=== PATIENT | female | born 1965 | race American Indian/Alaskan Native ===

== ENCOUNTER 2017-03-15 15:36 | Emergency (ER) | payer BC ==
[2017-03-15 15:43] VITALS: BMI 30.4
[2017-03-15] MEDS ORDERED: Sodium Chloride 0.9% 1,000 ML IV STA (16:01)
[2017-03-15 16:23] LABS: BASO # 0.01 K/mm3 (0.0-2.0); BASO % 0.2 % (0.0-3.0); EOS # 0.2 (0.0-0.7); EOS % 3.1 % (1.5-5.0); GRAN # 2.93 (1.4-6.5); GRAN % 56.7 % (50.0-68.0); HEMATOCRIT 39.9 % (36.0-48.0); LYMPH # 1.8 (1.2-3.4); LYMPH % 34.8 % (22.0-35.0); MEAN CELL VOLUME 86.2 fl (80.0-105.0); MEAN CORPUSCULAR HGB CONC 34.8 g/dl (31.0-37.0); MEAN PLATELET VOLUME 8.5 fl (7.0-11.0); MONO # 0.3 (0.1-0.6); MONO % 5.2 % (1.0-6.0); RED CELL DISTRIBUTION WIDTH 12.7 % (11.5-14.5); WHITE BLOOD COUNT 5.2 10^3/ul (4.5-11.0)
[2017-03-15 16:36] LABS: ALB/GLOB RATIO 1.4 (1.1-1.8); ALKALINE PHOSPHATASE 93 U/L (38-126); ALT/SGPT 88 U/L (7-56); AST/SGOT 79 U/L (14-36); BILIRUBIN,TOTAL 0.7 mg/dL (0.2-1.3); BLOOD UREA NITROGEN 12 mg/dL (7-21); CALCIUM 9.2 mg/dL (8.4-10.5); CARBON DIOXIDE 32 mmol/L (21-33); CHLORIDE 106 mmol/L (98-107); GFR AFRICAN-AMERICAN > 60; GLUCOSE,RANDOM 98 mg/dL (70-110); LIPASE 69 U/L (23-300); SODIUM 147 mmol/L (132-148); TOTAL PROTEIN 6.8 g/dL (5.8-8.3)
[2017-03-15 16:37] LABS: URINE BILIRUBIN NEGATIVE (NEGATIVE); URINE BLOOD SMALL (NEGATIVE); URINE GLUCOSE (UA) NEGATIVE (NEGATIVE); URINE KETONE NEGATIVE (NEGATIVE); URINE LEUKOCYTE ESTERASE NEGATIVE Leu/uL (NEGATIVE); URINE PROTEIN TRACE mg/dL (<30 mg/dL)
[2017-03-15 16:38] LABS: PARTIAL THROMBOPLASTIN TIME 29.6 Seconds (25.1-36.5)
[2017-03-15 16:44] LABS: URINE APPEARANCE CLEAR (CLEAR); URINE COLOR YELLOW (YELLOW)
[2017-03-15 16:46] LABS: URINE BACTERIA FEW (NEG)
--- NOTE | 2017-03-15 18:27 | US ---
HISTORY: abdominal pain COMPARISON: None available. TECHNIQUE: Sonographic evaluation of the abdomen. FINDINGS: LIVER: Measures 16.0 cm in sagittal dimension. Echogenic liver may be seen in setting of hepatic parenchymal disease or fatty infiltration. No focal hepatic mass identified. The main portal vein appears patent with normal directional flow. No intrahepatic bile duct dilatation. GALLBLADDER: No gallstones. No gallbladder wall thickening. Negative sonographic Dey's sign as assessed by the radiation oncology nurse. COMMON BILE DUCT: Measures 5 mm. PANCREAS: Not well visualized. RIGHT KIDNEY: Measures 10.4 x 4.1 x 5.9cm. No obstructing calculus or hydronephrosis identified. LEFT KIDNEY: Measures 9.9 x 7.0 x 6.2cm. No obstructing calculus or hydronephrosis identified. SPLEEN: Measures approximately 9.8 cm. Cm No focal splenic mass or calcification evident. AORTA: Limited views appear unremarkable. IVC: Limited views appear unremarkable. OTHER FINDINGS: None. IMPRESSION: Echogenic liver may be seen in setting of hepatic parenchymal disease or fatty infiltration.
--- NOTE | 2017-03-15 18:30 | US ---
HISTORY: suprapubic pain COMPARISON: None available. TECHNIQUE: Real-time transabdominal pelvic ultrasound was performed. In addition a transvaginal pelvic ultrasound was necessary to better depict pelvic anatomy. FINDINGS: Examination limited by bowel gas. UTERUS: Measures 5.7 x 2.5 x 3.0 cm. Anteverted. ENDOMETRIUM: Measures 1 mm in diameter. CERVIX: No cervical abnormality identified. RIGHT OVARY: Not visualized. LEFT OVARY: Not visualized. FREE FLUID: No significant free fluid noted. OTHER FINDINGS: None. IMPRESSION: Examination limited by bowel gas. Bilateral ovaries were not visualized.
--- NOTE | 2017-03-15 18:32 | ED PDOC ---
Arrival/HPI - General Chief Complaint: Abdominal Pain Time Seen by Provider: 03/15/17 15:51 Historian: Patient - History of Present Illness Narrative History of Present Illness (Text): 03/15/17 18:27 51yo female with history of hypertension who present with suprapubic abdominal pain that radiates to her right pelvic x 2weeks. Notes that [place] [facility] [place] and DC home with Percocet after negative work up. States abdominal CT was done and it was negative. Reports taking the Percocet without relieve. She denies nausea, vomiting, diarrhea, constipation, urinary symptoms, hematemesis, hematochezia, fever, chills, back pain, any other complaint. She notes that she was treated for UTI 2weeks ago. Past Medical History - Provider Review Nursing Documentation Reviewed: Yes - Infectious Disease Hx of Infectious Diseases: None - Reproductive Menopause: Yes - Cardiac Hx Cardiac Disorders: Yes Hx Hypertension: Yes - Pulmonary Hx Respiratory Disorders: No - Neurological Hx Neurological Disorder: No - HEENT Hx HEENT Disorder: No - Renal Hx Renal Disorder: No - Endocrine/Metabolic Hx Endocrine Disorders: No - Hematological/Oncological Hx Blood Disorders: No - Integumentary Hx Dermatological Disorder: No - Musculoskeletal/Rheumatological Hx Musculoskeletal Disorders: No - Gastrointestinal Hx Gastrointestinal Disorders: No - Genitourinary/Gynecological Hx Genitourinary Disorders: No - Psychiatric Hx Post Traumatic Stress Disorder: No Hx Substance Use: No - Surgical History Hx Appendectomy: Yes Hx Dilation and Curettage: Yes (2 abortions) Hx Tonsillectomy: Yes Other/Comment: ectopic pregnancies - Anesthesia Hx Anesthesia: Yes Hx Anesthesia Reactions: No Hx Malignant Hyperthermia: No - Suicidal Assessment Feels Threatened In Home Enviroment: No Family/Social History - Physician Review Nursing Documentation Reviewed: Yes Family/Social History: Unknown Family HX Smoking Status: Former Smoker Hx Alcohol Use: No Hx Substance Use: No Allergies/Home Meds Allergies/Adverse Reactions: Allergies sulfamethoxazole [From Bactrim] Allergy (Verified 03/15/17 15:42) URTICARIA trimethoprim [From Bactrim] Allergy (Verified 03/15/17 15:42) URTICARIA Home Medications: Home Meds Medication Instructions Recorded Confirmed Cholecalciferol [Vitamin D 1000 IU] 50,000 iu PO QWK 03/15/17 03/15/17 oxyCODONE/Acetaminophen [Percocet 1 tab PO PRN PRN 03/15/17 03/15/17 5/325 mg Tab] valACYclovir [Valtrex] 500 mg PO DAILY 03/15/17 03/15/17 Review of Systems - Physician Review All systems were reviewed & negative as marked: Yes - Review of Systems Constitutional: Normal Eyes: Normal ENT: Normal Respiratory: Normal Cardiovascular: Normal Gastrointestinal: Abdominal Pain. absent: Constipation, Diarrhea, Nausea, Vomiting, Hematochezia, Hematemesis Genitourinary Female: Normal Musculoskeletal: Normal Skin: Normal Neurological: Normal Endocrine: Normal Hemo/Lymphatic: Normal Psychiatric: Normal Physical Exam Vital Signs Reviewed: Yes Vital Signs Temp Pulse Resp BP Pulse Ox 03/15/17 19:25 98.8 F 88 18 136/84 99 03/15/17 18:48 98.2 F 72 17 145/82 98 03/15/17 15:46 98.5 F 75 19 159/89 H 99 Temperature: Afebrile Blood Pressure: Normal Pulse: Regular Respiratory Rate: Normal Appearance: Positive for: Well-Appearing, Non-Toxic, Comfortable Pain Distress: None Mental Status: Positive for: Alert and Oriented X 3 - Systems Exam Head: Present: Atraumatic, Normocephalic Pupils: Present: PERRL Extroacular Muscles: Present: EOMI Conjunctiva: Present: Normal Mouth: Present: Moist Mucous Membranes Neck: Present: Normal Range of Motion Respiratory/Chest: Present: Clear to Auscultation, Good Air Exchange. No: Respiratory Distress, Accessory Muscle Use Cardiovascular: Present: Regular Rate and Rhythm, Normal S1, S2. No: Murmurs Abdomen: Present: Tenderness (Suprapubic tenderness), Normal Bowel Sounds, Other (soft). No: Distention, Peritoneal Signs, Rebound, Guarding, McBurney's Point Tender, Rovsing's Sign Present Back: Present: Normal Inspection Upper Extremity: Present: Normal Inspection. No: Cyanosis, Edema Lower Extremity: Present: Normal Inspection. No: Edema Neurological: Present: GCS=15, CN II-XII Intact, Speech Normal Skin: Present: Warm, Dry, Normal Color. No: Rashes Psychiatric: Present: Alert, Oriented x 3, Normal Insight, Normal Concentration Medical Decision Making ED Course and Treatment: 03/16/17 02:01 PT was comfortable in emergency departm She had abdominal CT on monday, so abdominal/pelvis US was done in emergency department. Result was DW the pt hematuria was noted in her Urinalysis and she was started on cipro. She was referred to [facility]/Urologist. TRt emergency departmfor any new or worsening symptoms. - Lab Interpretations Lab Results: 03/15/17 16:10 03/15/17 16:10 Lab Results 03/15/17 16:10: Sodium 147, Potassium 4.0, Chloride 106, Carbon Dioxide 32, Anion Gap 13, BUN 12, Creatinine 0.9, Est GFR ( Amer) > 60, Est GFR (Non- Af Amer) > 60, Random Glucose 98, Calcium 9.2, Total Bilirubin 0.7, AST 79 H D, ALT 88 H, Alkaline Phosphatase 93, Total Protein 6.8, Albumin 4.0, Globulin 2.8 , Albumin/Globulin Ratio 1.4, Lipase 69 03/15/17 16:10: PT 10.9, INR 1.00, APTT 29.6 03/15/17 16:10: WBC 5.2, RBC 4.63, Hgb 13.9, Hct 39.9, MCV 86.2, MCH 30.0, MCHC 34.8, RDW 12.7, Plt Count 223, MPV 8.5, Gran % 56.7, Lymph % (Auto) 34.8, [place] % (Auto) 5.2, Eos % (Auto) 3.1, Baso % (Auto) 0.2, Gran # 2.93, Lymph # 1.8, [place] # 0.3, Eos # 0.2, Baso # 0.01 03/15/17 16:00: Urine Color Yellow, Urine Appearance Clear, Urine pH 7.0, Ur Specific [place] 1.020, Urine Protein Trace H, Urine Glucose (UA) Negative, Urine Ketones Negative, Urine Blood Small H, Urine Nitrate Negative, Urine Bilirubin Negative, Urine Urobilinogen 1.0 H, Ur Leukocyte Esterase Negative, Urine RBC 5 - 10, Urine WBC 2 - 5, Urine Bacteria Few - RAD Interpretation Radiology Orders: 03/15/17 16:02 TRANSVAGINAL [US] Stat 03/15/17 16:53 ABDOMEN COMPLETE [US] Stat - Medication Orders Current Medication Orders: Discontinued Medications Famotidine (Pepcid) 20 mg IVP STAT STA Stop: 03/15/17 16:02 Last Admin: 03/15/17 16:20 Dose: 20 mg IVP Administration Document 03/15/17 16:20 IT (Rec: 03/15/17 16:20 IT [id number]) Charges for Administration # of IVP Administrations 1 Sodium Chloride (Sodium Chloride 0.9%) 1,000 mls @ 1,000 mls/hr IV .Q1H STA Stop: 03/15/17 17:00 Last Admin: 03/15/17 16:20 Dose: 1,000 mls/hr eMAR Start Stop Document 03/15/17 16:20 IT (Rec: 03/15/17 16:20 IT [id number]) Intravenous Solution Start Date 03/15/17 Start Time 16:20 End Date 03/15/17 End time 17:20 Total Infusion Time 60 Ketorolac Tromethamine (Toradol) 30 mg IVP STAT STA Stop: 03/15/17 16:02 Last Admin: 03/15/17 16:20 Dose: 30 mg MAR Pain Assessment Document 03/15/17 16:20 IT (Rec: 03/15/17 16:20 IT [id number]) Pain Reassessment Is this a pain reassessment? No Sleep Is patient sleeping during reassessment? No Presence of Pain Presence of Pain Yes Pain Scale Used Pain Scale Used Numeric Location Left, Right or Bilateral Left Pain Location Body Site Abdomen Description Description Constant Intensity of Pain at present 5 IVP Administration Document 03/15/17 16:20 IT (Rec: 03/15/17 16:20 IT [id number]) Charges for Administration # of IVP Administrations 1 Disposition/Present on Arrival - Present on Arrival Any Indicators Present on Arrival: No History of DVT/PE: No History of Uncontrolled Diabetes: No Urinary Catheter: No History of Decub. Ulcer: No History Surgical Site Infection Following: None - Disposition Have Diagnosis and Disposition been Completed?: Yes Diagnosis: Abdominal pain, Hematuria Disposition: HOME/ ROUTINE Disposition Time: 19:00 Patient Plan: Discharge Condition: STABLE Discharge Instructions (ExitCare): Acute Hematuria (ED), Abdominal Pain (ED) Additional Instructions: Follow up with your [facility]/GI/Urologist Return to Ed for any new or worsening symptoms Prescriptions: Ciprofloxacin [Cipro] 500 mg PO BID #14 tab Naproxen [Naprosyn] 500 mg PO BID #20 tab Referrals: oJse Luis Mccullough MD [Primary Care Provider] - Follow up with primary Herson Mc MD [Staff Provider] - Follow up with primary Itz Izaguirre MD [Medical Doctor] - Follow up with primary Forms: [employer] ([place]), WORK NOTE
[2017-03-15 19:26] VITALS: BP 136/84; PULSE 88; RESP 18; TEMP 98.8; O2SAT 99
== END 2017-03-15 19:25 | disposition home or self-care (01) ==
LOC: ED 15:36
DX: R10.9 Unspecified abdominal pain (principal); R31.9 Hematuria, unspecified
CPT/HCPCS: 76700; 76830; 80053; 81001; 83690; 85025; 85610; 85730; 96361; 96374; 96375; 99283; J1885; J7040